=== PATIENT | female | born 1970 | race Native Hawaiian/Other Pacific Islander ===

== ENCOUNTER → 2017-08-08 | Outpatient (CLI) | payer BC | LOC: MC.RAD 14:40 | DX: Z12.31 Encounter for screening mammogram for malignant neoplasm of breast (principal); N64.89 Other specified disorders of breast ==

== ENCOUNTER → 2017-08-27 | Outpatient (CLI) | payer BC | LOC: MC.RAD 11:37 | DX: R92.8 Other abnormal and inconclusive findings on diagnostic imaging of breast (principal) ==

== ENCOUNTER 2018-01-09 06:09 | Day surgery (SDC) | payer BC ==
[2018-01-09] VITALS (13 sets, daily range): BP systolic 86–111; BP diastolic 54–77; PULSE 67–80; TEMP 98
[~2018-01-09] VITALS: Ht 149.9 cm; Wt 79.3 kg
[~2018-01-09 06:09] MED LIST: ASPIRIN E.C. 8181 MG PO; MICROGESTIN 1.51 TAB PO; NITROSTAT0.4 MG/TAB SL; PLAVIX 75MG TAB75 MG PO
[2018-01-09 06:40] LABS: MEAN CELL VOLUME 69 fl (80.0-100.0); MEAN CORPUSCULAR HGB CONC 30 g/dl (33.0-37.0); MEAN PLATELET VOLUME 8.6 fl (7.4-10.4); PLATELET COUNT 398 K/mm3 (130-400); RED BLOOD COUNT 4.53 M/mm3 (4.10-5.30); REDCELL DISTRIBUTION WIDTH-CV 17.5 % (11.5-14.5)
[2018-01-09 06:47] LABS: HEMATOCRIT 31.2 % (37.0-47.0); HEMOGLOBIN 9.3 g/dl (12.5-16.0); MEAN CORPUSCULAR HEMOGLOBIN 21 pg (27.0-31.0)
[2018-01-09 07:00] LABS: PROTHROMBIN TIME 11.4 SECONDS (9.7-12.8)
[2018-01-09 07:05] LABS: CALCIUM 8.5 mg/dL (8.4-10.2); CREATININE, serum 0.81 mg/dL (0.52-1.25)
== END 2018-01-09 14:00 | disposition home or self-care (01) ==
LOC: COL.CAR 06:09
PROVIDERS: Internal Medicine Interventional Cardiology
DX: I20.1 Angina pectoris with documented spasm (principal); R94.39 Abnormal result of other cardiovascular function study; Z79.82 Long term (current) use of aspirin; Z79.01 Long term (current) use of anticoagulants; Z87.891 Personal history of nicotine dependence
CPT/HCPCS: C1760; C1894; J2060; J2250; J3010; Q9967

== ENCOUNTER → 2018-09-23 | Outpatient (CLI) | payer BC | LOC: MC.RAD 09:50 | DX: Z12.31 Encounter for screening mammogram for malignant neoplasm of breast (principal) ==

== ENCOUNTER → 2018-11-09 | Outpatient (CLI) | payer BC | LOC: COL.RAD 09:40 | DX: K82.8 Other specified diseases of gallbladder (principal) | CPT/HCPCS: A9537 ==

== ENCOUNTER → 2019-07-09 | Outpatient (CLI) | payer BC | LOC: COL.RAD 11:18 | DX: R91.1 Solitary pulmonary nodule (principal); K76.0 Fatty (change of) liver, not elsewhere classified; R14.0 Abdominal distension (gaseous); R10.84 Generalized abdominal pain; K92.1 Melena; R63.5 Abnormal weight gain; Z90.49 Acquired absence of other specified parts of digestive tract | CPT/HCPCS: Q9967 ==